=== PATIENT | male | born 1955 | race Caucasian/White ===

== ENCOUNTER 2016-12-31 21:15 | Emergency (ER) | payer BC, OTHER ==
[2016-12-31 21:35] VITALS: BP 121/77; PULSE 72; TEMP 98.6; BMI 29.0
--- NOTE | 2016-12-31 22:14 | PDOC ---
History of Present Illness - General History Source: Patient Exam Limitations: No Limitations - History of Present Illness Initial Comments: 12/31/16 22:40 The patient is a 61 year old male with a past medical history of borderline diabetes who presents to the ED with complaints of abdominal pain since earlier today. The patient reports a sudden onset of sharp left lower quadrant pain radiating to his groin one hour ago. Patient also reports nausea associated with his left lower quadrant pain. He states he has never felt anything like this before. Denies vomiting or diarrhea. Denies chest pain or shortness of breath. Denies dysuria or change in urinary output. Denies fever or chills. Denies any other symptoms. <German Spicer - Last Filed: 01/01/17 01:15> <Candis Henley - Last Filed: 01/01/17 01:53> - General Chief Complaint: Pain Stated Complaint: ABD PAIN Time Seen by Provider: 12/31/16 21:55 Past History <German Spicer - Last Filed: 01/01/17 01:15> - Suicide/Smoking/Psychosocial Hx Smoking History: Never smoked Have you smoked in the past 12 months: No Information on smoking cessation initiated: No Hx Alcohol Use: Yes (occasional) Drug/Substance Use Hx: No Substance Use Type: None, Alcohol <Candis Henley - Last Filed: 01/01/17 01:53> - Past Medical History Allergies/Adverse Reactions: Allergies Allergy/AdvReac Type Severity Reaction Status Date / Time No Known Allergies Allergy Verified 12/31/16 21:35 Home Medications: Ambulatory Orders NK [No Known Home Medication] 12/31/16 Review of Systems - Review of Systems Able to Perform ROS?: Yes Comments:: 12/31/16 22:40 CONSTITUTIONAL: No reported: Fever, Chills, Diaphoresis, Generalized Weakness, Malaise, Loss of Appetite HEENT: No reported: Rhinorrhea, Nasal Congestion, Throat Pain, Throat Swelling, Difficulty Swallowing, Mouth Swelling, Ear Pain, Eye Pain, Visual Changes CARDIOVASCULAR: No reported: Chest Pain, Syncope, Palpitations, Irregular Heart Rate, Lightheadedness, Peripheral Edema RESPIRATORY: No reported: Cough, Shortness of Breath, SOB with Exertion, Orthopnea, Wheezing , Stridor, Hemoptysis GASTROINTESTINAL: + abdominal pain, nausea No reported: Abdominal Distension, Vomiting, Diarrhea, Constipation, Melena, Hematochezia GENITOURINARY: + groin pain No reported: Dysuria, Frequency, Urgency, Hesitancy, Flank Pain, MUSCULOSKELETAL: No reported: Myalgia, Arthralgia, Joint Swelling, Back pain, Neck Pain SKIN: No reported: Rash, Itching, Pallor HEMEATOLOGIC/IMMUNOLOGIC: No reported: Easy Bleeding, Easy Bruising, Lymphadenopathy, Frequent infections ENDOCRINE: No reported: Unexplained Weight Gain, Unexplained Weight Loss, Heat Intolerance , Cold Intolerance NEUROLOGIC: No reported: Headache, Focal Weakness, Paresthesias, Vertigo, Lightheadedness, Unsteady Gait, Seizure, Mental Status Changes, Incontinence PSYCHIATRIC: No reported: Anxiety, Depression <German Spicer - Last Filed: 01/01/17 01:15> *Physical Exam - Vital Signs Last Vital Signs Temp Pulse Resp BP Pulse Ox 98.6 F 72 18 121/77 99 12/31/16 21:31 12/31/16 21:31 12/31/16 21:31 12/31/16 21:31 12/31/16 21:31 - Physical Exam Comments: 12/31/16 22:40 GENERAL: Well developed, well nourished. Awake and alert. No acute distress. HEENT: Normocephalic, atraumatic. PERRLA, EOMI. No conjunctival pallor. Sclera are non- icteric. Moist mucous membranes. Oropharynx is clear. NECK: Supple. Full ROM. No JVD. Carotid pulses 2+ and symmetric, without bruits. No thyromegaly. No lymphadenopathy. CARDIOVASCULAR: Regular rate and rhythm. No murmurs, rubs, or gallops. Distal pulses are 2+ and symmetric. PULMONARY: No evidence of respiratory distress. Lungs clear to auscultation bilaterally. No wheezing, rales or rhonchi. ABDOMINAL: + Left lower abdomen groin pain. Soft. Non-tender. Non-distended. No rebound or guarding. No organomegaly. Normoactive bowel sounds. MUSCULOSKELETAL Normal range of motion at all joints. No bony deformities or tenderness. No CVA tenderness. EXTREMITIES: No cyanosis. No clubbing. No edema. No calf tenderness. SKIN: Warm and dry. Normal capillary refill. No rashes. No jaundice. NEUROLOGICAL: Alert, awake, appropriate. Cranial nerves 2-12 intact. No deficits to light touch and temperature in face, upper extremities and lower extremities. No motor deficits in the in face, upper extremities and lower extremities. Normoreflexic in the upper and lower extremities. Normal speech. Toes are down- going bilaterally. Gait is normal without ataxia. PSYCHIATRIC: Cooperative. Good eye contact. Appropriate mood and affect. <German Spicer - Last Filed: 01/01/17 01:15> - Vital Signs Last Vital Signs Temp Pulse Resp BP Pulse Ox 98.6 F 72 18 121/77 99 12/31/16 21:31 12/31/16 21:31 12/31/16 21:31 12/31/16 21:31 12/31/16 21:31 <Candis Henley - Last Filed: 01/01/17 01:53> ED Treatment Course - LABORATORY CBC & Chemistry Diagram: 12/31/16 22:35 12/31/16 22:35 - RADIOLOGY Radiograph Interpretation: 01/01/17 01:15 EXAM: CT ABDOMEN AND PELVIS IMPRESSION: Small nonobstructing left renal stone. No definite acute pathology. Reported by: Imaging patient relations liaison <German Spicer - Last Filed: 01/01/17 01:15> - LABORATORY CBC & Chemistry Diagram: 12/31/16 22:35 12/31/16 22:35 <Candis Henley - Last Filed: 01/01/17 01:53> Medical Decision Making - Medical Decision Making 01/01/17 00:00 61 yo male p/w with sidden left abd pain that radiated to his groin 01:51 ct scan spiral- shows small nonobstructiung renal stone imp kidney stone <Candis Henley - Last Filed: 01/01/17 01:53> *DC/Admit/Observation/Transfer - Attestations Scribe Attestion: 12/31/16 22:41 Documentation prepared by German Spicer, acting as medical social consultant for Candis Henley MD <German Spicer - Last Filed: 01/01/17 01:15> <Candis Henley - Last Filed: 01/01/17 01:53> Diagnosis at time of Disposition: Left lateral abdominal pain, Calculus of left kidney - Discharge Dispostion Disposition: HOME Condition at time of disposition: Stable - Patient Instructions Printed Discharge Instructions: DI for Kidney Stones Additional Instructions: please see your doctor this week Return for any worsening symptoms
[2016-12-31] MEDS ORDERED: SODIUM CHLORIDE 1,000 ML IV STA (22:16)
[2016-12-31] MEDS ORDERED: ONDANSETRON 4 MG/2 ML VIAL IVPB ONE (22:16)
[2016-12-31] MEDS ORDERED: ONDANSETRON 4 MG/2 ML VIAL ONE (22:37)
[2016-12-31 22:42] LABS: URINE APPEARANCE CLEAR; URINE BILIRUBIN NEGATIVE (NEGATIVE); URINE BLOOD 3+ (NEGATIVE); URINE COLOR YELLOW; URINE GLUCOSE (UA) NEGATIVE (NEGATIVE); URINE KETONE NEGATIVE (NEGATIVE); URINE NITRITE NEGATIVE (NEGATIVE); URINE PROTEIN NEGATIVE (NEGATIVE); URINE UROBILINOGEN NEGATIVE mg/dL (0.2-1.0)
[2016-12-31 22:47] LABS: BASOPHIL 0.4 % (0-2.0); MCH 28.6 pg (25.7-33.7); MCHC 33.2 g/dl (32.0-35.9); MEAN CELL VOLUME 86.1 fl (80-96); MEAN PLT VOLUME 9.1 fl (7.5-11.1); NEUTROPHILS 81.7 % (42.8-82.8); PLATELET COUNT 175 K/MM3 (134-434); RDW 13.3 % (11.9-15.9); WHITE BLOOD COUNT 11.6 K/mm3 (4.0-10.0)
[2016-12-31 22:54] LABS: URINE MUCUS RARE; URINE RBC 10 /hpf (0-3); URINE WBC 1 /hpf (3-5)
[2016-12-31 23:15] LABS: ALBUMIN 3.7 g/dl (3.4-5.0); ALK PHOS 71 U/L (45-117); ANION GAP 7 (8-16); BILIRUBIN,TOTAL 0.4 mg/dL (0.2-1.0); CALCIUM 8.8 mg/dL (8.5-10.1); CO2 26 mmol/L (21-32); GLUCOSE,RANDOM 104 mg/dL (74-106); SGOT/AST 16 U/L (15-37); SGPT/ALT 21 U/L (12-78); TOT PROT 6.7 g/dl (6.4-8.2)
[2017-01-01 14:11] LABS: URINE LEUK ESTERASE Negative (NEGATIVE)
== END 2017-01-01 02:07 | disposition home or self-care (01) ==
LOC: JER 21:15
PROC: 3E033GC Introduction of Other Therapeutic Substance into Peripheral Vein, Percutaneous Approach (ICD-10-PCS; principal; 2016-12-31)
DX: N20.0 Calculus of kidney (principal); E11.9 Type 2 diabetes mellitus without complications
CPT/HCPCS: 36415; 74176-TC; 80053; 81003; 81015; 85025; 99283-25

== ENCOUNTER 2019-11-25 16:22 | Emergency (ER) | payer BC, OTHER ==
[2019-11-25 16:30] VITALS: BP 128/84; PULSE 51; TEMP 98.2; BMI 29.8
--- NOTE | 2019-11-25 16:32 | PDOC ---
Rapid Medical Evaluation Chief Complaint: Pain, Acute Time Seen by Provider: 11/25/19 16:29 Medical Evaluation: Allergies Allergy/AdvReac Type Severity Reaction Status Date / Time No Known Allergies Allergy Verified 11/25/19 16:27 11/25/19 16:30 I have performed a brief in-person evaluation of this patient. The patient presents with a chief complaint of: h/o kidney stone presenting with left flank pain x 1 hr with nausea. Denies fever or urinary complains Pertinent physical exam findings: TTP to left flank in mild distress. afebrile I have ordered the following: CBC,AU,UCX, spiral CT The patient will proceed to the ED for further evaluation. Discharge Disposition - Diagnosis Left lateral abdominal pain - Discharge Dispostion Condition at time of disposition: Stable - Referrals - Patient Instructions - Post Discharge Activity
[2019-11-25] MEDS ORDERED: SODIUM CHLORIDE 1,000 ML IV STA (16:33)
[2019-11-25] MEDS ORDERED: ACETAMINOPHEN 1000 MG/100 ML VIAL (NON FORMULARY) IVPB ONE (17:18)
[2019-11-25] MEDS ORDERED: ONDANSETRON 4 MG/2 ML VIAL IVPUSH ONE (17:18)
--- NOTE | 2019-11-25 17:19 | PDOC ---
History of Present Illness - General Chief Complaint: Pain, Acute Stated Complaint: ABDOMINAL PAIN Time Seen by Provider: 11/25/19 16:29 History Source: Patient Exam Limitations: No Limitations Past History - Travel History Traveled outside of the country in the last 30 days: No Close contact w/someone who was outside of country & ill: No - Medical History Allergies/Adverse Reactions: Allergies Allergy/AdvReac Type Severity Reaction Status Date / Time No Known Allergies Allergy Verified 11/25/19 16:27 Home Medications: Ambulatory Orders NK [No Known Home Medication] 12/31/16 Anemia: No Asthma: No Cardiac Disorders: No CVA: No COPD: No DVT: No Diabetes: No Dialysis: No GI Disorders: No Disorders: No HTN: No Kidney Stones: No Liver Disease: No Psychiatric Problems: No Thyroid Disease: No Lung CA: No Other medical history: KIDNEY STONES - Immunization History Immunization Up to Date: No - Psycho-Social/Smoking History Smoking History: Never smoked Have you smoked in the past 12 months: No - Substance Abuse Hx (Audit-C & DAST Scrn) How often the patient has a drink containing alcohol: Never Score: In Men: 4 or > Positive; In Women: 3 or > Positive: 0 Screen Result (Pos requires Nsg. Audit-10AR): Negative In the last yr the pt used illegal drug/Rx for NonMed reason: No Score: Yes response is considered Positive: 0 Screen Result (Positive result requires Nsg. DAST-10): Negative Review of Systems - Review of Systems Able to Perform ROS?: Yes Comments:: 11/25/19 19:15 CONSTITUTIONAL: Absent: fever, chills, diaphoresis, generalized weakness, malaise, loss of appetite HEENT: Absent: rhinorrhea, nasal congestion, throat pain, throat swelling, difficulty swallowing, mouth swelling, ear pain, eye pain, visual Changes CARDIOVASCULAR: Absent: chest pain, loss of consciousness, palpitations, irregular heart rate, peripheral edema RESPIRATORY: Absent: cough, shortness of breath, dyspnea with exertion, orthopnea, wheezing, stridor, hemoptysis GASTROINTESTINAL: Absent: abdominal pain, abdominal distension, nausea, vomiting, diarrhea, co nstipation, melena, hematochezia GENITOURINARY: Present: Left flank Absent: dysuria, frequency, urgency, hesitancy, hematuria, flank pain, genital pain MUSCULOSKELETAL: Absent: myalgia, arthralgia, joint swelling SKIN: Absent: rash, itching, pallor HEMATOLOGIC/IMMUNOLOGIC: Absent: easy bleeding, easy bruising, lymphadenopathy, frequent infections ENDOCRINE: Absent: unexplained weight gain, unexplained weight loss, heat intolerance, cold intolerance NEUROLOGIC: Absent: headache, focal weakness or paresthesias, dizziness, unsteady gait, seizure, mental status changes, bladder or bowel incontinence PSYCHIATRIC: Absent: anxiety, depression, suicidal or homicidal ideation, hallucinations. Is the patient limited Arabic proficient: No *Physical Exam - Vital Signs Last Vital Signs Temp Pulse Resp BP Pulse Ox 98.2 F 51 L 20 128/84 100 11/25/19 16:27 11/25/19 16:27 11/25/19 16:27 11/25/19 16:27 11/25/19 16:27 - Physical Exam 11/25/19 19:15 GENERAL: Well developed, well nourished. Awake and alert. No acute distress. HEENT: Normocephalic, atraumatic. PERRLA, EOMI. No conjunctival pallor. Sclera are non- icteric. Moist mucous membranes. Oropharynx is clear. NECK: Supple. Full ROM. No JVD. Carotid pulses 2+ and symmetric, without bruits. No thyromegaly. No lymphadenopathy. CARDIOVASCULAR: Regular rate and rhythm. No murmurs, rubs, or gallops. Distal pulses are 2+ and symmetric. PULMONARY: No evidence of respiratory distress. Lungs clear to auscultation bilaterally. No wheezing, rales or rhonchi. ABDOMINAL: TTP of LLQ. Soft. Non-distended. No rebound or guarding. No organomegaly. Normoactive bowel sounds. MUSCULOSKELETAL Normal range of motion at all joints. No bony deformities or tenderness. (+) L CVA tenderness. EXTREMITIES: No cyanosis. No clubbing. No edema. No calf tenderness. SKIN: Warm and dry. Normal capillary refill. No rashes. No jaundice. NEUROLOGICAL: Alert, awake, appropriate. Cranial nerves 2-12 intact. No deficits to light touch and temperature in face, upper extremities and lower extremities. No motor deficits in the in face, upper extremities and lower extremities. Normoreflexic in the upper and lower extremities. Normal speech. Toes are down-going bilaterally. Gait is normal without ataxia. PSYCHIATRIC: Cooperative. Good eye contact. Appropriate mood and affect. ED Treatment Course - LABORATORY CBC & Chemistry Diagram: 11/25/19 17:19 11/25/19 17:19 Medical Decision Making - Medical Decision Making 11/25/19 18:15 Patient 64-year-old male past medical history of kidney stones, presents with sudden onset of left lower quadrant pain starting 2 hours ago.. The patient attended 10. He states it feels similar to his kidney stones in the past. De nies hematuria, dysuria, chest pain or shortness of breath. He does admit to nausea. A/P: Left-sided flank pain On exam patient is left CVA tenderness with left lower quadrant pain. Likely renal stone. Will obtain basic labs, spiral CT Reevaluate 11/25/19 19:16 Mild leukocytosis, urine and not collected at this time. Kidney function normal. Patient was supposed to go to CT scan however unable to find him at this time. Patient likely eloped, however will give signout to SANDRA Henley in the event patient does show back up. Discharge - Discharge Information Problems reviewed: Yes Clinical Impression/Diagnosis: Left lateral abdominal pain Condition: Stable Disposition: ELOPED - Follow up/Referral - Patient Discharge Instructions - Post Discharge Activity
[2019-11-25 17:47] LABS: BASO % 0.5 % (0-2.0); EOS % 0.9 % (0-4.5); HEMATOCRIT 43.5 % (35.4-49); HEMOGLOBIN 14.3 GM/dL (11.7-16.9); LYMPH % 13.3 % (8-40); MCH 28.6 pg (25.7-33.7); MCHC 32.9 g/dl (32.0-35.9); MEAN CELL VOLUME 86.8 fl (80-96); MEAN PLT VOLUME 10.6 fl (7.5-11.1); MONO % 4.6 % (3.8-10.2); NEUT % 80.7 % (42.8-82.8); PLATELET COUNT 77 K/MM3 (134-434); RBC 5.01 M/mm3 (4.00-5.60); RDW 13.9 % (11.9-15.9); WHITE BLOOD COUNT 11.5 K/mm3 (4.0-10.0)
[2019-11-25] MEDS ORDERED: ACETAMINOPHEN INJECTION 100 ML IVPB ONE (17:49)
[2019-11-25 18:16] LABS: ALBUMIN 3.9 g/dl (3.4-5.0); BILIRUBIN,TOTAL 0.4 mg/dL (0.2-1); CALCIUM 9.6 mg/dL (8.5-10.1); CREATININE 1.1 mg/dL (0.55-1.3); POTASSIUM 4.3 mmol/L (3.5-5.1); TOT PROT 7.1 g/dl (6.4-8.2)
== END 2019-11-25 19:16 | disposition left against medical advice (07) ==
LOC: JER 16:22
PROC: 3E0333Z Introduction of Anti-inflammatory into Peripheral Vein, Percutaneous Approach (ICD-10-PCS; principal; 2019-11-25)
PROC: 3E033GC Introduction of Other Therapeutic Substance into Peripheral Vein, Percutaneous Approach (ICD-10-PCS; 2019-11-25)
PROC: 3E0337Z Introduction of Electrolytic and Water Balance Substance into Peripheral Vein, Percutaneous Approach (ICD-10-PCS; 2019-11-25)
DX: R10.32 Left lower quadrant pain (principal)
CPT/HCPCS: 36415; 80053; 85025; 99284-25